=== PATIENT | female | born 1960 | race Caucasian/White ===

== ENCOUNTER → 2017-08-07 11:54 | Day surgery (SDC) | payer BC ==
--- NOTE | 2017-07-26 11:18 | HP ---
PREOPERATIVE HISTORY AND PHYSICAL: DATE OF SURGERY: 08/07/17 DATE OF OFFICE VISIT: 07/25/17 ATTENDING PHYSICIAN: Dr. Karl Gallego * (DICTATED BY TAYLOR MCCARTY) PROCEDURE: Left excision of distal clavicle, open. CHIEF COMPLAINT: Left shoulder pain. HISTORY OF PRESENT ILLNESS: Agueda is a 56-year-old female who presented to the clinic for followup of left shoulder pain due to AC joint arthritis. She had an injection previously; however, it wore off at the beginning of June. Since then, the pain has returned and the pain is worse with reaching across body. She rates as a constant ache. She rates at 7/10. It radiates into her neck. She also has pain in her bilateral hands and states that Aleve helps. She denies numbness, tingling, fever, chills and states that she is doing well, otherwise. PAST MEDICAL HISTORY: Denies current problems. PAST SURGICAL HISTORY: 1. x2. 2. Hysterectomy and plastic surgery of her legs. MEDICATIONS: Vitamin D 2000 mg take 1 by mouth once weekly. ALLERGIES: CODEINE. FAMILY HISTORY: Denies pertinent family history. SOCIAL HISTORY: She lives with her spouse. She works as a teacher and a loya. She denies tobacco use. She reports occasional alcohol consumption. She is right hand dominant. REVIEW OF SYSTEMS: A 14-point review of systems was reviewed with the patient. Positive for current complaint, otherwise negative. Denies fevers, chills, night sweats, chest pain, or shortness of breath. Denies history of DVT or PE. Denies history of bleeding disorder and denies prior complications with anesthesia. PHYSICAL EXAMINATION GENERAL: Well-developed, well-nourished 56-year-old female in no acute distress. Alert and oriented x3. Appropriate mood and affect. VITAL SIGNS: Height 64, weight 130. Pulse 66, blood pressure 110/67, temperature 97.2. BMI 22.3. HEENT: Normocephalic, atraumatic. PERRLA. Throat clear. NECK: Supple. PULMONARY: Lungs are clear to auscultation bilaterally. No wheezing, rhonchi, or rales. CARDIOVASCULAR: Regular rate and rhythm. S1 and S2. No murmurs, gallops, or rubs. No edema. ABDOMEN: Positive bowel sounds, soft, nontender. NEUROLOGIC: Alert and oriented x3. Cranial nerves grossly intact. MUSCULOSKELETAL: Left upper extremity: Skin is intact. There is no warmth or erythema. She has significant tenderness to palpation over the AC joint. Forward flexion and abduction 160. External rotation to 70, internal rotation to T8. +5/5 strength of rotator cuff testing. Mildly positive Neer's, Ortiz- Mathieu, [place]'s. +2 radial pulse. Sensation is intact to light touch distally. DIAGNOSTIC STUDIES/LAB DATA: Multiple x-rays of the left shoulder revealed AC joint arthritis. MRI of the left shoulder revealed no full thickness tear, mild bursal sided tearing, and significant AC joint arthritis. IMPRESSION: Left shoulder AC joint arthritis. PLAN: The patient is scheduled to undergo a left excision distal clavicle, open with Dr. Gallego on 08/07/17. The postop course and risks of surgery to include infection, bleeding, anesthesia, injury to blood vessels, nerves, surrounding structures, scar, stiffness, need for further surgery, persistent pain, and DVT and PE were discussed with the patient. The patient would like to undergo the procedure. She was also referred to Dr. Tong for her hand pain. She will follow up with Dr. Gallego in 10 to 14 days postop for follow up and suture removal. Percocet will be used for postop pain management. TAYLOR MCCARTY [id number]/[facility] #: [id number] JENISE
[~2017-08-07 11:54] MED LIST: Buffered Lidocaine 0.9% SYRIN* 5 ML/SYR SYRINGE INTRADERM ONE; Buffered Lidocaine 0.9% SYRIN* 5 ML/SYR SYRINGE ONE; Bupivacaine 0.25% SDV* 30 ML ONE; Dexamethasone IV* 4 MG/ML 1 ML (4 MG) IV SLOW PU ONE; Dexamethasone IV* 4 MG/ML 1 ML (4 MG) ONE; EPHEDrine (Pressors)* 50 MG/ML VIAL ONE; Famotidine IV* 10 MG/ML 2 ML (20 mg) IV ONE; Famotidine IV* 10 MG/ML 2 ML (20 mg) ONE; HYDROcodone/ACETAMIN 5-325 MG* 1 TAB PO PRN; Ketorolac INJ* 30 MG/ML 1 ML VIAL IV PRN; Ketorolac INJ* 30 MG/ML 1 ML VIAL ONE; Lidocaine 2% PF * 5 ML VIAL ONE; Methylene Blue 0.5 %* 50 MG/10 ML AMP IV ONE; Midazolam* 1 MG/ML 2 ML VIAL (2 MG) ONE; Mivacurium Chloride* 20 MG/10 ML VIAL IV ONE; PROCHLORPERAZINE INJ 5 MG/ML 2 ML VIAL IV PRN; Propofol* 10 MG/ML 20 ML BTL IV PUSH ONE; ceFAZolin 2 GM PREMIX (*) 2 GM/50 ML BAG IVPB ONE; fentaNYL* 50 MCG/ML 2 ML VIAL (100 MCG VIAL) IV PRN; fentaNYL* 50 MCG/ML 2 ML VIAL (100 MCG VIAL) ONE; oxyCODONE/Acetamin 5/325 MG* TAB PO PRN
[2017-08-07 16:02] VITALS: BP 111/64
--- NOTE | 2017-08-13 01:53 | OP ---
CC: PCP* OPERATIVE REPORT: DATE OF OPERATION: 08/07/17 - [facility] DATE OF : 64 ATTENDING SURGEON: Karl Gallego MD ASSISTANTS: TAYLOR [place] An assistant analyst was needed for the entirety of the case to help with positioning and retraction and was utilized throughout all portions of the case. ANESTHESIOLOGIST: Dr. Barnard. ANESTHESIA: General. PRE-OP DIAGNOSIS: Left shoulder AC joint arthritis. POST-OP DIAGNOSIS: Left shoulder AC joint arthritis. OPERATIVE PROCEDURE: Left shoulder open distal clavicle excision. ESTIMATED BLOOD LOSS: Less than 25 cc. COMPLICATIONS: None. INDICATIONS: Agueda Farrell is a 56-year-old female who has had left shoulder pain for sometime, localized with AC joint. She has had injections in the past , which helped. She responded very well to the AC joint injection. She is not interested in getting repeated AC joint injections overall. We did talk about operative treatment, which is open versus arthroscopic surgery. She elected to proceed with open surgery. Risks and benefits were discussed at length and included but are not limited to bleeding, infection, damage to nerves, vessels, surrounding structures, wound nonhealing, persistent pain, need for surgery, scarring, stiffness, incomplete relief of symptoms, risks of anesthesia, risk of DVT. DESCRIPTION OF PROCEDURE: The patient was greeted in the preoperative area by the attending surgeon. Correct extremity was marked and consent was confirmed. The patient was brought back to the operating suite where she was placed in the supine position on the operating table. She then underwent general anesthesia and endotracheal intubation, after which the left shoulder was prepped and draped in the usual sterile fashion, beginning with chlorhexidine soap, and alcohol wipe and a final prep with ChloraPrep. After appropriate surgical pause indicating side, site, procedure and administration of antibiotics, a Saber incision over the AC joint was carefully made using an 15 blade. The soft tissues were carefully dissected for later layer closures. The AC joint capsule was identified and incised longitudinally , flaps were safe for layer closure. The soft tissues were carefully dissected off the last centimeter of the lateral clavicle, and the Hohmann's were placed there and a ruler was used to saniya out the presumed osteotomy. Excision, sagittal saw was used to then incise the bone, excise bone. The soft tissues were carefully dissected. Care was taken to preserve the CC ligaments. The bone was then removed and measured about 1 cm in resection. The resection was then tested with the finger placed in the wound and the shoulder was taken through range of motion. There were no evidence of areas of impingement any more. The wound was copiously irrigated with sterile saline. The capsule was closed with 0 Vicryl in interrupted fashion. The subcutaneous tissues were closed with 2-0 Vicryl and the skin with derrell. Sterile dressings were applied. The shoulder was injected with 0.25% Marcaine plain. She was awoken from anesthesia and transferred to PACU in stable condition. POSTOPERATIVE PLAN: She will be discharged on pain medication. She will be kept in a sling and allowed range of motion as tolerated. I will see the patient back in 10 to 14 days. [id number]/[facility] #: [id number] MTDD
== END | disposition home or self-care (01) ==
LOC: OR 11:54
PROVIDERS: ATTEND Orthopaedic Surgery
DX: M19.012 Primary osteoarthritis, left shoulder (principal); I95.9 Hypotension, unspecified
CPT/HCPCS: J0690; J1100; J1885; J2250; J2704; J3010